=== PATIENT | female | born 1970 | race Caucasian/White ===

== ENCOUNTER → 2016-12-31 | Outpatient (CLI) | payer BC ==
[~2016-12-31] MED LIST: NO MEDICATIONS; NORCO 10-325 TA1 TAB PO; OMEPRAZOLE20 M2 PO; PANTOPRAZOLE SO40 MG PO
--- NOTE | ~2016-12-31 | US136 ---
[facility] A Service of [facility] & [facility] RADIOLOGY TEXT RESULTS PATIENT: TAMIA ZAMORA LOCATION: [facility] : 72 UNIT #: [id number] AGE: [address]: Aditya Fernandes MD SEX: F ORDER DR: [id number] [facility]. [place], [place] [address] [id number] O MR#: [id number] Acc #: [id number] NAME: TAMIA ZAMORA : 1970 SEX: F STUDY DATE/TIME: 12/31/2016 14:47 UNIT: [facility] ROOM: STUDY DESCRIPTION: U/L [facility] Art Study [facility] Bil Attending Physician: Aditya Fernandes M.D. Ordering Physician: Aditya Fernandes M.D. Primary Care Physician: Aditya Fernandes M.D. MEDICAL IMAGING REPORT This report is preliminary unless electronic signature is present EXAM Bilateral resting ankle-brachial index measurement, 12/31/2016. HISTORY 46-year-old female referred for history of bilateral lower extremity claudication, present for several years. She also has a history of low back pain. TECHNIQUE Cuff pressure measurements were obtained at brachial, ankle and great toe levels along with separate dorsalis pedis and posterior tibial measurements at each ankle. FINDINGS The examination is normal. Resting ankle-brachial indices measure between 1.07 and 1.08 on the right and between 1.02 and 1.18 on the left. Great toe pressures are within normal limits when compared with ankle pressures. Brachial pressures are equivalent. IMPRESSION 1. Normal resting ankle-brachial indices. 2. No evidence of significant lower extremity arterial occlusive disease. 3. Ankle-brachial indices measure up to 1.08 on the right and 1.18 on the left. Dictated by... Fabio Castorena M.D. THIS IS AN ELECTRONICALLY VERIFIED REPORT Fabio Castorena M.D. at 01/02/2017 9:15 AM RGW/pipe [facility] A Service of [facility] RADIOLOGY TEXT RESULTS PATIENT: TAMIA ZAMORA LOCATION: [facility] : 71 UNIT #: [id number] AGE: [address]: Aditya Fernandes MD SEX: F ORDER DR: TD: 12/31/2016 21:39 JOB #: [id number] MEDICAL IMAGING REPORT Page 1 of 1 COPY
--- NOTE | ~2016-12-31 | US24 ---
[facility] A Service of [facility] & [facility] RADIOLOGY TEXT RESULTS PATIENT: TAMIA ZAMORA LOCATION: [facility] : 71 UNIT #: [id number] AGE: [address]: Aditya Fernandes MD SEX: F ORDER DR: [id number] [address] [address] [id number] O MR#: [id number] Acc #: [id number] NAME: TAMIA ZAMORA : 1970 SEX: F STUDY DATE/TIME: 12/31/2016 1400 UNIT: [facility] ROOM: STUDY DESCRIPTION: US Breast Unilateral Attending Physician: Aditya Fernandes M.D. Ordering Physician: Aditya Fernandes M.D. Primary Care Physician: Aditya Fernandes M.D. MEDICAL IMAGING REPORT This report is preliminary unless electronic signature is present EXAM Targeted ultrasound of the left breast 12/31/2016 Result text under order number ending [id number] Diagnostic mammogram 12/31/2016. Please see this order for result text. BIRADS: 2 - Benign finding Dictated by... Lio Sims M.D. THIS IS AN ELECTRONICALLY VERIFIED REPORT Lio Sims M.D. at 12/31/2016 4:59 PM Eusebio TD: 12/31/2016 15:47 JOB #: [id number] MEDICAL IMAGING REPORT Page 1 of 1 COPY
--- NOTE | ~2016-12-31 | MY7 ---
[facility] A Service of [facility] & [facility] RADIOLOGY TEXT RESULTS PATIENT: TAMIA ZAMORA LOCATION: [facility] : 72 UNIT #: [id number] AGE: [address]: Aditya Fernandes MD SEX: F ORDER DR: [id number] [facility]. [place], [place] [address] [id number] O MR#: [id number] Acc #: [id number] NAME: TAMIA ZAMORA : 1970 SEX: F STUDY DATE/TIME: 12/31/2016 13:00 UNIT: [facility] ROOM: STUDY DESCRIPTION: MY Mammogram Dx Dig Lt Attending Physician: Aditya Fernandes M.D. Ordering Physician: Aditya Fernandes M.D. Primary Care Physician: Aditya Fernandes M.D. MEDICAL IMAGING REPORT This report is preliminary unless electronic signature is present EXAM Unilateral left digital diagnostic mammogram with targeted left breast ultrasound 12/31/2016 INDICATIONS 46-year-old female complaining of a left breast nodule for 3 weeks. No personal or family history of breast cancer. No surgeries. TECHNIQUE CC, MLO and true lateral views were obtained. Compression CC and compression MLO views were obtained. Following the mammographic portion of the study, targeted ultrasound of the left breast was performed with attention to the 9 o'clock and 3 o'clock positions. COMPARISON STUDIES 05/22/2016 and 08/31/2014. Ultrasound 05/22/2016. FINDINGS MAMMOGRAM: The breast parenchyma is heterogeneously dense, degrading sensitivity of screening mammography. Deep to the marker in the left breast, there is re-demonstration of a mass measuring about 3 cm. This localizes to about the 9 o'clock position. It is stable to slightly smaller than on the prior study. Also, there is an additional probable mass at about the 3 o'clock position of the left breast on the patient's mammogram. No suspicious microcalcifications. No skin thickening or adenopathy. Imaging findings persist with spot compression. Targeted ultrasound was thereafter performed. ULTRASOUND: The patient was initially scanned independently by the technologist and then rescanned in my presence. In the 9 o'clock position left breast, there is a benign cyst measuring about 3.1 cm. When compared to a prior ultrasound of 05/22/2016, it is stable to slightly larger. Regardless, it has benign features. There are 1 or 2 adjacent daughter STS. [facility] A Service of [facility] & [facility] RADIOLOGY TEXT RESULTS PATIENT: TAMIA ZAMORA LOCATION: [facility] : 72 UNIT #: [id number] AGE: [address]: Aditya Fernandes MD SEX: F ORDER DR: cysts associated with the dominant cyst at 9 o'clock, 1 measuring about 7 mm and the second also measuring about 7 mm. In the 3-4 o'clock position left breast, 1 cm from the nipple, there is a benign 2.8 cm cyst. There is an additional benign cyst in the 3-4 o'clock position left breast measuring 2.3 cm. Imaging findings are concordant with mammography. Absent new or worsening symptoms in either breast, the patient should return for bilateral screening study in May 2017 to maintain an annual screening schedule. Findings and recommendations were discussed with the patient. She voiced understanding and agreement. IMPRESSION 1. Benign diagnostic mammogram and targeted left breast ultrasound. The palpable area of concern at the 9 o'clock position left breast corresponds to a dominant benign cyst measuring up to 3.1 cm, stable to slightly larger than on the prior ultrasound of May 2016. 1 or 2 adjacent daughter cysts are present, both of which have benign characteristics as well measure less than a cm. 2. There is a benign cyst in the 3-4 o'clock position left breast measuring 2.8 cm and there is a second benign cyst in the same clock position measuring about 2.3 cm. These findings are also concordant with mammography. 3. Absent new or worsening symptoms in either breast, the patient should return for a repeat screening mammogram in May 2017 to return to an annual screening schedule. Findings and recommendations discussed with the patient. BIRADS: 2 Benign Finding. Dictated by... Lio Sims M.D. THIS IS AN ELECTRONICALLY VERIFIED REPORT Lio Sims M.D. at 01/04/2017 11:08 AM ERIC/malik TD: 01/03/2017 20:58 JOB #: [id number] MEDICAL IMAGING REPORT Page 1 of 1 COPY
== END | disposition home or self-care (01) ==
LOC: CMAM 12:43
DX: R92.8 Other abnormal and inconclusive findings on diagnostic imaging of breast (principal); M79.604 Pain in right leg; N63 Unspecified lump in breast
CPT/HCPCS: 76641; 93922; G0206